=== PATIENT | female | born 1960 | race Caucasian/White ===

== ENCOUNTER 2016-07-27 13:51 | Inpatient (IN) ==
[2016-07-27] MEDS ORDERED: Nitroglycerin 0.4 MG TAB.SUBL SL STA (14:16)
--- NOTE | 2016-07-27 14:17 | Emergency Department Note ---
Disposition Clinical Impression: NSTEMI (non-ST elevated myocardial infarction) Chest pain Qualifiers: Chest pain type: unspecified Qualified Code(s): R07.9 - Chest pain, unspecified Disposition: Admitted As Inpatient Condition: Fair Time of Disposition: 15:31 Chest Pain HPI - General Chief Complaint: ED Chest Pain Stated Complaint: chest pain Time Seen by Provider: 07/27/16 14:02 Source: EMS Mode of arrival: ambulatory Limitations: no limitations Vital Signs Reviewed: Yes Nursing Notes Reviewed: Yes - History of Present Illness HPI Narrative: 55-year-old female with no history other than morbid obesity presents with abrupt onset of retrosternal chest heaviness that radiated slightly to the right and was associated with shortness of breath. This began one hour prior to arrival. She denied diaphoresis, vomiting with the symptoms. She states his symptoms significantly improved after administration of nitroglycerin and aspirin by the EMS in route. She denies history of similar symptoms. She denies any exertional symptoms. She denies any home medications other than Zoloft. She denies family history of CAD. She has no other past medical history. Pt complaint: chest pain Severity scale (1-10): 5 - Related Data Allergies Allergy/AdvReac Type Severity Reaction Status Date / Time acetaminophen [From Vicodin] Allergy Anaphylaxis Verified 07/27/16 13:54 codeine Allergy Anaphylaxis Verified 07/27/16 13:54 hydrocodone [From Vicodin] Allergy Anaphylaxis Verified 07/27/16 13:54 All systems ED: reviewed and negative except as stated. Chest Pain PMH - Past Medical History Medical history: Reports: arthritis, osteoporosis Psychiatric history: Reports: anxiety - Social History Smoking Status: Current every day smoker Alcohol use: Reports: none, rarely Drug use: Reports: marijuana Physical Exam - Head Head exam: atraumatic, normocephalic, normal inspection - Eye Eye exam: Present: normal appearance, PERRL, EOMI - ENT ENT exam: normal exam, normal oropharynx, mucous membranes moist - Neck Neck exam: Present: normal inspection, full ROM, trachea midline - Chest Chest wall nontender. Pain nonreproducible. - Respiratory Respiratory exam: Clear to auscultation bilaterally without wheezes rales or rhonchi Cardiovascular Cardiovascular exam: Present: regular rate, normal rhythm, normal heart sounds - Abdominal Exam Limited by obesity, but soft and nontender. - Extremities Exam Extremities exam: Present: normal inspection, full ROM - Expanded Lower Extremity Exam Hip/Pelvis exam: Present: normal inspection, full ROM - Back Exam Back exam: Present: normal inspection, full ROM. Absent: tenderness, CVA tenderness (R), CVA tenderness (L) - Neurological Exam Neurological exam: Present: alert, oriented X3, CN II-XII intact - Psychiatric Psychiatric exam: Present: normal affect, normal mood - Skin Skin exam: Present: warm, dry, intact, normal color - General General appearance: alert Course - Reevaluation(s) Reevaluation #1: No clear ischemia on initial EKG, but patient does have inferior Q waves which are new compared with 01/22/2014. Patients pain is remitted after nitroglycerin in the emergency department. Given abnormal EKG and remitted chest pain after nitroglycerin we will bring the patient in for chest pain observation. Time: 15:31 Reevaluation #2: Notified of abnormal troponin of 0.16. Patient will now be admitted for NSTEMI. Time: 15:34 Reevaluation #3: Case discussed with hospitalist on-call Dr. Hinton. Accepted for non-ST elevation myocardial infarction. Time: 15:46 Vital Signs O2 Sat by Pulse Oximetry 98 07/27/16 13:52 Temperature 98.3 F 07/27/16 17:49 Pulse Rate 73 07/27/16 17:49 Respiratory Rate 16 07/27/16 17:49 Blood Pressure 156/90 07/27/16 17:49 O2 Sat by Pulse Oximetry 97 07/27/16 17:49 Oxygen Delivery Oxygen Delivery Room Air Chest Pain - Lab Data Result diagrams: 07/27/16 16:53 07/27/16 15:02 Lab Results 07/27/16 07/27/16 07/27/16 Range/Units 15:02 15:02 15:02 WBC 7.5 (4.3-11.1) K/mcL RBC 4.32 (3.82-4.97) M/mcL Hgb 13.4 (11.5-15.4) g/dL Hct 39.7 (35.3-44.9) % MCV 91.9 (83.0-100.0) fL MCH 31.0 (28.0-33.3) pg MCHC 33.8 (31.6-35.5) g/dL RDW 13.0 (11.5-14.5) % Plt Count 248 (140-400) K/mcL MPV 9.4 (9.4-12.4) fL Immature Gran % 0.3 (0-4) % Seg Neutrophils % 66.5 % Lymphocytes % 25.8 % Monocytes % 5.3 % Eosinophils % 1.6 % Basophils % 0.5 % Neutrophils # 5.0 (1.6-8.9) K/mcL Lymphocytes # 1.9 (0.6-4.6) K/mcL Monocytes # 0.4 (0.0-1.3) K/mcL Eosinophils # 0.1 (0.0-0.6) K/mcL Basophils # 0.0 (0.0-0.2) K/mcL Immature Plt Fraction 3.5 (1.1-6.1) % Sodium 142 (136-145) mEq/L Potassium 3.5 (3.5-4.5) mEq/L Chloride 108 (98-109) mEq/L Carbon Dioxide 25 (19-29) mEq/L BUN 12 (7-20) mg/dL Creatinine 0.75 (0.57-1.11) mg/dL Est GFR ( Amer) > 60 (> 60) Est GFR (Non-Af Amer) > 60 (> 60) BUN/Creatinine Ratio 16 (6-26) Glucose 86 (70-99) mg/dL Calculated Osmolality 293 (280-300) Calcium 9.1 (8.6-10.8) mg/dL Troponin I 0.16 H* (0-0.03) ng/mL - Radiology Data Radiology results reviewed: Yes I reviewed the patient's radiology results. - EKG Data EKG attestation: Yes I reviewed and interpreted this EKG. EKG results narrative: Normal sinus rhythm at 72 with normal axis and intervals. No ST elevation or depression. There are nonspecific T-wave inversions in the septal leads. There are Q waves in inferior leads. These are new compared with 01/22/2014. Attestation Statement - Attestation Attestation: Dr Alejandre note: Patient was seen in conjunction with resident Dr. Omkar Mitchell; please see his chart for complete documentation. I spent [id number] time with the patient and I agree with the patient's treatment and disposition. Patient is pain-free at the time of my evaluation. No acute injury pattern is noted on EKG. She was seen in the emergency room by the gericare aide who recommended medications and admission. Admitted in stabilized and improved condition. Patient had indigestion type symptoms late morning which are new and unique to her. She then had retrosternal chest pain at rest, early afternoon.
[2016-07-27 15:10] LABS: Basophils % 0.5 %; Eosinophils # 0.1 K/mcL (0.0-0.6); Eosinophils % 1.6 %; Hematocrit 39.7 % (35.3-44.9); Hemoglobin 13.4 g/dL (11.5-15.4); Immature Granulocytes % 0.3 % (0-4); Immature Platelets 3.5 % (1.1-6.1); Lymphocytes # 1.9 K/mcL (0.6-4.6); Lymphocytes % 25.8 %; Mean Corpuscular HGB Conc 33.8 g/dL (31.6-35.5); Mean Corpuscular Volume 91.9 fL (83.0-100.0); Mean Platelet Volume 9.4 fL (9.4-12.4); Monocytes # 0.4 K/mcL (0.0-1.3); Monocytes % 5.3 %; Platelet Count 248 K/mcL (140-400); Red Blood Count 4.32 M/mcL (3.82-4.97); Segmented Neutrophils % 66.5 %
[2016-07-27 15:22] LABS: BUN/Creatinine Ratio 16 (6-26); Blood Urea Nitrogen 12 mg/dL (7-20); Calcium 9.1 mg/dL (8.6-10.8); Carbon Dioxide 25 mEq/L (19-29); Chloride 108 mEq/L (98-109); Glucose 86 mg/dL (70-99); Osmolality,Calculated 293 (280-300); Potassium 3.5 mEq/L (3.5-4.5); Sodium 142 mEq/L (136-145); eGFR For African Americans > 60 (> 60); eGFR For Non-African Americans > 60 (> 60)
[2016-07-27] MEDS ORDERED: Acetaminophen 325 MG TABLET PO PRN (16:01)
[2016-07-27] MEDS ORDERED: Ondansetron 4 MG/2 ML VIAL IVP PRN (16:01)
[2016-07-27] MEDS ORDERED: Naloxone 0.4 MG/ML INJ IVP PRN (16:01)
[2016-07-27] MEDS ORDERED: *HR* Heparin 5,000 UNIT/ML VIAL IVP ONE (16:05)
[2016-07-27] MEDS ORDERED: *HR* Heparin 5,000 UNIT/ML VIAL IVP PRN ×2 (16:05)
--- NOTE | 2016-07-27 16:09 | Internal Med History&Physical ---
Date of Encounter: 07/27/16 Time of Encounter: 16:07 Assessment and Plan (1) NSTEMI (non-ST elevated myocardial infarction) Current visit: Yes Status: Acute Start heparin drip Aspirin, Lipitor, Lopressor, nitroglycerin Telemetry, follow troponins, lipid panel Cardiology consult to consider cardiac catheterization Nothing by mouth after midnight Echocardiogram (2) Depression Current visit: Yes Status: Acute Stable Order Ativan as needed for anxiety Qualifiers: Depression Type: major depressive disorder Major depression recurrence: recurrent Active/Remission status: remission status unspecified Qualified Code(s): F33.9 - Major depressive disorder, recurrent, unspecified (3) Anxiety Current visit: Yes Status: Acute (4) Morbid obesity Current visit: Yes Status: Acute Qualifiers: Obesity type: unspecified obesity type Qualified Code(s): E66.01 - Morbid ( severe) obesity due to excess calories (5) Tobacco abuse Current visit: Yes Status: Acute Smoking cessation counseling given for 5 minutes Nicotine patch offered Omeprazole for GI prophylaxis and heparin drip for DVT prophylaxis. Patient will be admitted as inpatient, she is expected to stay more than 2 midnights. She is a full code. Time spent on this admission 40 minutes. She is high risk for cardiac complications Internal Medicine - H&P: HPI Chief complaint: chest pain Admitted From: Emergency Dept History of present illness: Ms. Hicks is a 55 year old female with a past medical history of obesity and tobacco use who started complaining of some stomach discomfort earlier today at 11 AM for which she took some antiacids without achieving any relief. At approximately 1 PM she started complaining of severe retrosternal/midsternal chest pressure radiating to the right side initially and then to the left Jaw that lasted for about half an hour, 10 out of 10 in intensity which improved considerably with the use of nitroglycerin given by the EMS. Another nitroglycerin resolve the pain completely. The patient's troponin is 0.16, the EKG shows new Q waves in the inferior leads. The patient is pain-free at the moment very anxious. Feels slightly nauseous but denies any other symptoms. Chest x-ray is unremarkable Past Med Surg Social Fam HX - Past Medical History Medical history: arthritis, osteoporosis, other (Tobacco use, osteoporosis, osteoarthritis, depression) Psychiatric history: anxiety - Past Surgical History Surgical History: other (Right knee arthroscopy) - Social History Smoking Status: Current every day smoker Packs per day: One pack per day Smokeless Tobacco Status: No Alcohol use: none, rarely Drug use: marijuana - Additional Family History Additional family history: Mother had the first myocardial infarction at the age of 50 Internal Medicine - H&P: Meds Calcium Polycarbophil [Fiber Laxative] 625 mg PO HS 07/27/16 [History] Cyclobenzaprine [Flexeril] 10 mg PO TID 07/27/16 [History] LORazepam [Ativan] 0.5 mg PO QAM 07/27/16 [History] LORazepam [Ativan] 1 mg PO HS 07/27/16 [History] Melatonin 10 mg PO HS 07/27/16 [History] Mirtazapine [Remeron] 30 mg PO HS 07/27/16 [History] Omeprazole [PriLOSEC] 40 mg PO HS 07/27/16 [History] OxyCODONE Immed Rel [Roxicodone 5 MG] 5 mg PO Q4HR PRN 07/27/16 [History] Sertraline [Zoloft] 75 mg PO HS 07/27/16 [History] Allergies acetaminophen [From Vicodin] Allergy (Verified 07/27/16 13:54) Anaphylaxis codeine Allergy (Verified 07/27/16 13:54) Anaphylaxis hydrocodone [From Vicodin] Allergy (Verified 07/27/16 13:54) Anaphylaxis All Systems PM: A 10-system review of systems was performed and is negative for pertinent findings except as documented above in the HPI. Review of systems: No chest moment, no shortness of breath but she had some difficulty breathing while having/experiencing the chest pressure. No abdominal pain, no dysuria. Other systems out of the 10 reviewed were negative - Constitutional Vitals: Temp Pulse Resp BP Pulse Ox 98.2 F 76 18 135/90 99 07/27/16 13:54 07/27/16 13:54 07/27/16 13:54 07/27/16 13:54 07/27/16 13:54 General appearance: Present: A&O X 3, morbidly obese - Head Head exam: Present: atraumatic, normocephalic - Eye Eye exam: Present: PERRL, conjuntiva pink, sclera anicteric Pupils: Present: PERRL - Neck Neck exam general surgery: Present: supple, trachea midline. Absent: lymphadenopathy - Respiratory Respiratory exam: Present: decreased breath sounds, CTAB. Absent: accessory muscle use, rales, rhonchi, wheezes - Cardiovascular Cardiovascular exam: Present: RRR, +S1, +S2. Absent: diastolic murmur, gallop, rubs, systolic murmur - GI/Abdominal GI/Abdominal exam: Present: diminished bowel sounds, soft, no peritoneal signs. Absent: distended, tenderness - Extremities Exam Extremities exam: Present: warm, radial pulses palpable and symetrical. Absent : calf tenderness, cyanotic, pedal edema - Neurological Exam Neurological exam: Present: CN II-XII intact, oriented X3, no focal deficits. Absent: pronater drift, facial droop, speech deficit - Skin Skin exam: Present: dry, intact Internal Med - H&P Results - Labs CBC & Chem 7: 07/27/16 15:02 07/27/16 15:02 Labs: Short CBC 07/27/16 Range/Units 15:02 WBC 7.5 (4.3-11.1) K/mcL Hgb 13.4 (11.5-15.4) g/dL Hct 39.7 (35.3-44.9) % Plt Count 248 (140-400) K/mcL Neutrophils # 5.0 (1.6-8.9) K/mcL BMP 07/27/16 15:02 Sodium 142 Potassium 3.5 Chloride 108 Carbon Dioxide 25 BUN 12 Creatinine 0.75 Glucose 86 Calcium 9.1 Cardiac Enzymes 07/27/16 Range/Units 15:02 Troponin I 0.16 H* (0-0.03) ng/mL - Impressions ITS Impressions Chest X-Ray 07/27/16 14:11 IMPRESSION: No acute abnormality D/ / Giorgio Pat MD / Giorgio Pat MD Interpreting Provider: Giorgio Pat MD
[2016-07-27] MEDS ORDERED: Heparin 25,000 UNIT/500 ML D5W 25,000 UNIT/500 ML MLS IVC SCH (16:15)
[2016-07-27] MEDS ORDERED: 0.9 % Sodium Chloride 1,000 ML IVC SCH (16:15)
--- NOTE | 2016-07-27 16:19 | Cardiology Consult Note ---
Date of Encounter: 07/27/16 Time of Encounter: 16:18 Assessment and Plan (1) Chest pain Current Visit: Yes Status: Acute Qualifiers: Chest pain type: unspecified Qualified Code(s): R07.9 - Chest pain, unspecified (2) NSTEMI (non-ST elevated myocardial infarction) Current Visit: Yes Status: Acute Patient is a 55-year-old female with a history of tobacco use. Presents with chest discomfort, radiation to her neck and jaw. Symptoms improved with nitroglycerin. Initial troponin mildly elevated. Findings are consistent with possible ACS. Agree with aspirin, statin, and beta tiburcio therapy. Agree with heparin drip. Since patient currently chest pain-free, will hold off Plavix for now. Check echocardiogram. Risks, benefits, and alternatives to a cardiac catheterization were discussed. Patient is agreeable. (3) Tobacco abuse Current Visit: Yes Status: Acute Tobacco cessation strongly emphasized. Discussion w patient/family: The assessment and plan as outlined above was discussed with the patient and/or family members who expressed understanding and agreement. All questions were answered. Thank you for involving us in the care of your patient. Please call with any questions. History of Present Illness Consult date: 07/27/16 Requesting physician: Miles Ferguson Consult reason: CP, elevated troponin Chief complaint: CP History of present illness: Ms. Hicks is a 55 year old female who presented to the ER via EMS. Reports sudden onset of chest pain this morning. She was walking across the room to make her bed when she noticed a sudden onset of chest pressure. She thought was indigestion and took some antacids. Symptoms radiated to her neck and jaw. Symptoms lasted for at least 20-30 minutes. Symptoms improved with nitroglycerin. She denies a personal history of CAD. Reports remote stress testing. She has never required a cardiac catheterization. In the ER, ECG performed which demonstrates sinus rhythm. No significant ST or T -wave changes. Troponin 0.16. Past Med Surg Social Fam HX - Past Medical History Medical history: arthritis, osteoporosis, other (Tobacco use, osteoporosis, osteoarthritis, depression) Psychiatric history: anxiety - Past Surgical History Surgical History: other (Right knee arthroscopy) - Social History Smoking Status: Current every day smoker Packs per day: One pack per day Smokeless Tobacco Status: No Alcohol use: none, rarely Drug use: marijuana Medications and Allergies Calcium Polycarbophil [Fiber Laxative] 625 mg PO HS 07/27/16 [History] Cyclobenzaprine [Flexeril] 10 mg PO TID 07/27/16 [History] LORazepam [Ativan] 0.5 mg PO QAM 07/27/16 [History] LORazepam [Ativan] 1 mg PO HS 07/27/16 [History] Melatonin 10 mg PO HS 07/27/16 [History] Mirtazapine [Remeron] 30 mg PO HS 07/27/16 [History] Omeprazole [PriLOSEC] 40 mg PO HS 07/27/16 [History] OxyCODONE Immed Rel [Roxicodone 5 MG] 5 mg PO Q4HR PRN 07/27/16 [History] Sertraline [Zoloft] 75 mg PO HS 07/27/16 [History] Allergies acetaminophen [From Vicodin] Allergy (Verified 07/27/16 13:54) Anaphylaxis codeine Allergy (Verified 07/27/16 13:54) Anaphylaxis hydrocodone [From Vicodin] Allergy (Verified 07/27/16 13:54) Anaphylaxis All Systems Review: A 10-system review of systems was performed and is negative for pertinent findings except as documented above in the HPI. - Cardiovascular Cardiovascular: as per HPI Physical Examination Vital Signs, Last 4 Hours Temp Pulse Resp BP Pulse Ox 07/27/16 13:54 98.2 F 76 18 135/90 99 07/27/16 13:52 98 General: Conversant, No Apparent Distress HEENT: Atraumatic, Normocephaly, Mucus Membranes Moist Neck: No JVD, Normal carotid pulses Cardiac: Reg Rate and Rhythm, Normal S1 and S2, No Murmur Lungs: Normal Breath Sounds, No Wheeze, Rales, Rhonchi Neuro: Alert and responsive, No focal deficits noted Abdomen: Soft, Non-Tender Skin: No rashes noted on visualized skin Musculoskeletal: No Chest Wall Tenderness Extremities: No Clubbing, No Cyanosis, No Edema Results 07/27/16 15:02 07/27/16 15:02 Lab Results 07/27/16 07/27/16 07/27/16 15:02 15:02 15:02 WBC 7.5 Hgb 13.4 Hct 39.7 Plt Count 248 Sodium 142 Potassium 3.5 Chloride 108 Carbon Dioxide 25 BUN 12 Creatinine 0.75 Glucose 86 Calcium 9.1 Troponin I 0.16 H* - EKG Interpretation EKG results cardiology: personally reviewed Consult Discharge Plan - Plan Referrals: NO,PCP [Non-Partnered Physician] -
[2016-07-27] MEDS ORDERED: Nitroglycerin 0.4 MG TAB.SUBL SL PRN (16:38)
[2016-07-27] MEDS ORDERED: *HR* LORazepam 1 MG TABLET PO ONE (16:43)
[2016-07-27 17:04] LABS: Hematocrit 38.6 % (35.3-44.9); Hemoglobin 13.1 g/dL (11.5-15.4); Mean Corpuscular HGB Conc 33.9 g/dL (31.6-35.5); Mean Corpuscular Hemoglobin 31.5 pg (28.0-33.3); Mean Corpuscular Volume 92.8 fL (83.0-100.0); Mean Platelet Volume 9.6 fL (9.4-12.4); Platelet Count 238 K/mcL (140-400); Red Blood Count 4.16 M/mcL (3.82-4.97); Red Cell Distribution Width 13.1 % (11.5-14.5)
[2016-07-27 17:09] LABS: Prothrombin Time 10.7 Seconds (9.4-12.1)
[2016-07-27] MEDS: Metoprolol 100 MG TABLET PO SCH ×2 (18:19→22:40)
[2016-07-27] MEDS: Aspirin 325 MG TABLET PO SCH (18:21)
[2016-07-27] MEDS: *HR* OxyCODONE/APAP 5/325 TABLET PO PRN (18:21)
[2016-07-27] MEDS: *HR* LORazepam 1 MG TABLET PO SCH (22:36)
[2016-07-27] MEDS: Mirtazapine 15 MG TABLET PO SCH (22:36)
[2016-07-27] MEDS: Melatonin 3 MG TABLET PO SCH (22:39)
[2016-07-27] MEDS: Nicotine 21 MG PATCH.TD24 TD SCH (22:41)
[2016-07-27] MEDS: Ketorolac 30 MG/ML VIAL IVP PRN (22:46)
[2016-07-28 05:21] LABS: BUN/Creatinine Ratio 21 (6-26); Blood Urea Nitrogen 16 mg/dL (7-20); Calcium 8.7 mg/dL (8.6-10.8); Carbon Dioxide 19 mEq/L (19-29); Chloride 112 mEq/L (98-109); Chol/HDL Ratio 5.6 (0-4.9); Cholesterol 197 mg/dL (< 200); Glucose 98 mg/dL (70-99); HDL Cholesterol 35 mg/dL (40-59); LDL Cholesterol,Calculated 120 mg/dL (0-99); Osmolality,Calculated 289 (280-300); Potassium 3.7 mEq/L (3.5-4.5); Sodium 139 mEq/L (136-145); Triglycerides 210 mg/dL (< 150); eGFR For African Americans > 60 (> 60); eGFR For Non-African Americans > 60 (> 60)
[2016-07-28] MEDS: *HR* OxyCODONE/APAP 5/325 TABLET PO PRN ×3 (06:34→21:17)
--- NOTE | 2016-07-28 07:46 | ECHO - Doppler Report ---
Echocardiogram Name: Marci Hicks Date of Study: 07/27/2016 Date: 1960 Ht: 66.0 in Medical Record#: [id number] Age: 55 Wt: 259.0 lb Gender: Female BSA: 2.23 Order #: [id number] Location: [facility] Room #: [id number] Reading Physician: Laurent Fernández MD, [facility] Coding Clerk: Candida Sanchez RDCS Ordering Physician: Milton Dobson DO,[facility] Primary Physician: Duran Scott MD Indications: NSTEMI Impressions: LVEF 55-60%. There is hypokinesis of the basal inferior wall. All other segments demonstrate normal contractility. Mild concentric left ventricular hypertrophy. Normal right ventricular size and function. No significant valvular dysfunction. No evidence of pulmonary hypertension. Left Ventricular Wall Motion: Rest Echo Findings The basal inferior wall was hypokinetic. All other wall segments showed normal motion. Findings: Study Quality * Suboptimal echo windows. ECG Findings * Normal sinus rhythm. Left Ventricle * LVEF 55-60%. There is hypokinesis of the basal inferior wall. All other segments demonstrate normal contractility. * Mild concentric left ventricular hypertrophy. * Normal left ventricular diastolic function. Right Ventricle * Normal right ventricular size and function. Left Atrium * Normal left atrial size. Right Atrium * Normal right atrial size. Aorta * Normally sized aortic root. Pericardium * There is no pericardial effusion present. IVC * The IVC is not well evaluated. Aortic Valve * Trileaflet aortic valve. * No aortic stenosis. * No aortic regurgitation. Mitral Valve * Normal mitral valve structure. * No mitral stenosis. * Trace mitral regurgitation. Tricuspid Valve * Normal tricuspid valve structure. * No tricuspid stenosis. * Trace tricuspid regurgitation. * No evidence of pulmonary hypertension. Pulmonic Valve * Normal pulmonic valve structure. * No pulmonic stenosis. * Trace pulmonic regurgitation. History Years 7 Packs 1 Family History of CAD Measurements: BP: 156/ 90 2D Normal Values RVIDd: 3.53 cm IVSd: 1.29 cm 0.6 - 1.0 cm LVIDd: 4.87 cm 3.7 - 5.6 cm LVPWd: 1.19 cm 0.6 - 1.1 cm LVIDs: 2.65 cm 1.5 - 3.6 cm AO: 3.30 cm < 4.0 cm %FS: 45.80 cm >25 % LA volume: 37 Mitral Valve Peak E:.77 m/sec Peak A:.65 m/sec E/A Ratio:1.2 Tricuspid Valve TV Regurg Peak Grad: 13.00mmHg TV Regurg Peak Prasanna: 1.79m/sec Updated by Laurent Fernández MD, [facility] on 07/28/2016 7:38:30 AM electronically signed on 07/28/2016 7:39:31 AM with status of Final Wall Motion [place]: 1=Normal, 2=Hypokinesis, 3=Akinesis, 4=Dyskinesis, 5=Aneurysmal, 6=Hyperkinetic, X=Not Visualized (Blank)=Missing
--- NOTE | 2016-07-28 09:27 | Internal Med Progress Note ---
<Juan Kaur - Last Filed: 07/28/16 15:18> Date of Encounter: 07/28/16 Time of Encounter: 09:22 - Assessment and plan (1) NSTEMI (non-ST elevated myocardial infarction) Current Visit: Yes Status: Acute Assessment and plan: Continue heparin drip Aspirin, Lipitor, Lopressor, nitroglycerin Telemetry, follow troponins, lipid panel Scheduled for CAth today - NPO (2) Anxiety Current Visit: Yes Status: Acute Assessment and plan: Ativan PRN for anxiety (3) Tobacco abuse Current Visit: Yes Status: Acute Assessment and plan: Smoking cessation counseling given. Patient states that she intends to quit smoking immediately (4) Morbid obesity Current Visit: Yes Status: Acute Assessment and plan: Dam Attendant about proper nutrition Qualifiers: Obesity type: unspecified obesity type Qualified Code(s): E66.01 - Morbid ( severe) obesity due to excess calories - Time Spent With Patient 25 - 35 minutes - Subjective Interval history: Mrs. Hicks is a pleasant 55 year old female who was admitted for a NSTEMI. She is scheduled for a cath today. She was anxious about the cath procedure until I explained it to her and she then became much more relaxed. She does smoke, but plans to quit soon. She denies CP/n/v/d/SOB. - Constitutional Vitals: Temp Pulse Resp BP Pulse Ox 97.7 F 65 18 151/86 97 07/28/16 07:54 07/28/16 07:54 07/28/16 07:54 07/28/16 07:54 07/28/16 07:54 General appearance: Present: A&O X 3, morbidly obese, pleasant, answers questions appropriately - Eye Eye exam: Present: conjuntiva pink, sclera anicteric - Neck Neck exam general surgery: Present: supple, trachea midline. Absent: lymphadenopathy - Respiratory Respiratory exam: Present: CTAB. Absent: accessory muscle use, rales, rhonchi, wheezes - Cardiovascular Cardiovascular exam: Present: RRR, +S1, +S2. Absent: diastolic murmur, gallop, rubs, systolic murmur - GI/Abdominal GI/Abdominal exam: Present: normal bowel sounds, soft, no peritoneal signs. Absent: distended, tenderness - Extremities Exam Extremities exam: Present: warm, radial pulses palpable and symetrical. Absent : calf tenderness, cyanotic, pedal edema - Neurological Exam Neurological exam: Present: oriented X3, no focal deficits. Absent: pronater drift, facial droop, speech deficit - Psychiatric Psychiatric exam: Present: normal affect, normal mood - Skin Skin exam: Present: dry, intact Internal Medicine: Result - Labs CBC & Chem 7: 07/27/16 16:53 07/28/16 04:26 Labs: Short CBC 07/27/16 Range/Units 16:53 WBC 8.3 (4.3-11.1) K/mcL Hgb 13.1 (11.5-15.4) g/dL Hct 38.6 (35.3-44.9) % Plt Count 238 (140-400) K/mcL BMP 07/28/16 04:26 Sodium 139 Potassium 3.7 Chloride 112 H Carbon Dioxide 19 BUN 16 Creatinine 0.75 Glucose 98 Calcium 8.7 Cardiac Enzymes 07/27/16 07/28/16 Range/Units 16:53 04:26 Troponin I 1.10 H* 1.53 H* (0-0.03) ng/mL - ABG Interpretation ABG results: PT/INR, D-dimer PT 10.7 Seconds (9.4-12.1) 07/27/16 16:53 - EKG Interpretation EKG Interpreted by Myself: Yes EKG shows normal: sinus rhythm, axis (normal), intervals, QRS complexes (new q waves), ST-T waves - Prior EKG Data When compared to previous EKG: there are significant changes (new q waves ) Consult Discharge Plan - Plan Referrals: Duran Scott Jr, MD [Primary Care Provider] - <Jose David Morrison - Last Filed: 07/28/16 19:40> - Assessment and plan (1) NSTEMI (non-ST elevated myocardial infarction) Current Visit: Yes Status: Acute (2) Tobacco abuse Current Visit: Yes Status: Acute (3) Anxiety Current Visit: Yes Status: Acute (4) Morbid obesity Current Visit: Yes Status: Acute Qualifiers: Obesity type: due to excess calories Qualified Code(s): E66.01 - Morbid ( severe) obesity due to excess calories - Constitutional Vitals: Temp Pulse Resp BP Pulse Ox 96 F L 58 16 146/72 96 07/28/16 16:50 07/28/16 18:07 07/28/16 18:07 07/28/16 18:07 07/28/16 18:07 Internal Medicine: Result - Labs CBC & Chem 7: 07/27/16 16:53 07/28/16 04:26 Labs: BMP 07/28/16 04:26 Sodium 139 Potassium 3.7 Chloride 112 H Carbon Dioxide 19 BUN 16 Creatinine 0.75 Glucose 98 Calcium 8.7 Cardiac Enzymes 07/28/16 Range/Units 04:26 Troponin I 1.53 H* (0-0.03) ng/mL - ABG Interpretation ABG results: PT/INR, D-dimer PT 10.7 Seconds (9.4-12.1) 07/27/16 16:53 - Attending Attestation I examined this patient and my medical decision-making was reviewed with the Resident Physician on 07/28/16. I agree with the documented findings, disposition and treatment plan as described except to the extent set forth below. Ms. Hicks is currently admitted for acute NSTEMI. She is moderate to high risk due to potential complications associated with acute coronary ischemia. Ms. Hicks is awaiting cardiac cath. Pain free now. No dyspnea. No GI symptoms. Exam alert. Comfortable Heart reg Lungs clear I/P 1. Acute NSTEMI 2. Tobacco abuse Further diagnoses and plan as above.
[2016-07-28] MEDS: Aspirin 325 MG TABLET PO SCH (09:28)
[2016-07-28] MEDS: *HR* LORazepam 0.5 MG TABLET PO SCH (09:28)
[2016-07-28] MEDS: Metoprolol 100 MG TABLET PO SCH (09:28)
[2016-07-28] MEDS: Ketorolac 30 MG/ML VIAL IVP PRN (09:31)
--- NOTE | 2016-07-28 11:07 | Event Note ---
Date of Encounter: 07/28/16 Time of Encounter: 10:00 - Cardiology Event Note Denies recurrent chest pain. Awaiting [facility] later this morning for NSTEMI. Troponin as high as 1.53. All questions answered. Chest X-Ray 07/27/16 14:11 IMPRESSION: No acute abnormality D/ / Giorgio Pat MD / Giorgio Pat MD Interpreting Provider: Giorgio Pat MD Short CBC 07/27/16 07/27/16 Range/Units 16:53 15:02 WBC 8.3 7.5 (4.3-11.1) K/mcL Hgb 13.1 13.4 (11.5-15.4) g/dL Hct 38.6 39.7 (35.3-44.9) % Plt Count 238 248 (140-400) K/mcL Neutrophils # 5.0 (1.6-8.9) K/mcL BMP 07/28/16 07/27/16 Range/Units 04:26 15:02 Sodium 139 142 (136-145) mEq/L Potassium 3.7 3.5 (3.5-4.5) mEq/L Chloride 112 H 108 (98-109) mEq/L Carbon Dioxide 19 25 (19-29) mEq/L BUN 16 12 (7-20) mg/dL Creatinine 0.75 0.75 (0.57-1.11) mg/dL Glucose 98 86 (70-99) mg/dL Calcium 8.7 9.1 (8.6-10.8) mg/dL Cardiac Enzymes 07/28/16 07/27/16 07/27/16 Range/Units 04:26 16:53 15:02 Troponin I 1.53 H* 1.10 H* 0.16 H* (0-0.03) ng/mL
--- NOTE | 2016-07-28 11:27 | Electrocardiograph Report ---
[facility] Test Date: 2016-07-27 Pat Name: Marci Hicks Department: 104 Room: 2NE24 Gender: F [employer] Supervisor: [facility] : 1960 Requested By: Beau Mitchell Order Number: [id number] Reading MD: Milind Schwartz MD Measurements Intervals [place] Rate: 72 P: 20 OK: 183 QRS: 16 QRSD: 105 T: 9 QT: 392 QTc: 416 Interpretive Statements SINUS RHYTHM POSSIBLE INFERIOR MYOCARDIAL INFARCTION, PROBABLY OLD POOR R WAVE PROGRESSION Electronically Signed On 07-28-16 11:26:20 EST by Milind Schwartz MD
[2016-07-28] MEDS: Nicotine 21 MG PATCH.TD24 TD SCH (12:24)
[2016-07-28] MEDS ORDERED: Heparin 1,000 UNITS/500 mL NS 500 ML ONE (14:07)
[2016-07-28] MEDS ORDERED: 0.9 % Sodium Chloride 1,000 ML ONE ×2 (14:07→14:38)
[2016-07-28] MEDS ORDERED: *HR* Heparin 10,000 UNIT/10 ML VIAL ONE (14:07)
[2016-07-28] MEDS ORDERED: *HR* Midazolam HCl 2 MG/2 ML VIAL ONE (14:30)
[2016-07-28] MEDS ORDERED: *HR* FentaNYL (PF) 100 MCG/2 ML VIAL ONE (14:30)
[2016-07-28] MEDS ORDERED: Nitroglycerin 1,000 MCG/10 ML VIAL IV ONE (14:31)
[2016-07-28] MEDS ORDERED: Verapamil 5 MG/2 ML VIAL ONE (14:31)
[2016-07-28] MEDS ORDERED: *HR* Midazolam HCl 5 MG/5 ML VIAL IVP ONE (14:36)
--- NOTE | 2016-07-28 14:37 | Pre-Sedation Evaluation ---
Pre-sedation evaluation - Pre-sedation checklist Date of procedure: 07/28/16 Procedure: left heart cath Recent Vitals: Last Vital Signs Temp 97.7 F 07/28/16 07:54 Pulse 66 07/28/16 11:00 Resp 16 07/28/16 11:00 BP 141/80 07/28/16 11:00 Pulse Ox 96 07/28/16 11:00 H&P (including ROS) documented in medical record: Yes Previous reaction to sedatives/anesthetics: No Dietary Status: NPO after Midnight Dentition: No loose teeth or bridges ASA Classification *see protocol: CLASS II-Mild systemic disease Plan of Care: Pt appropriate candidate for procedure/moderate/conscious sedation , Risks/benefits of procedure/sedation discussed w/ patient/family
--- NOTE | 2016-07-28 15:27 | Event Note ---
Date of Encounter: 07/28/16 Time of Encounter: 15:25 C demonstrated minimal CAD. Echocardiogram demonstrated overall normal LVEF. No further inpatient cardiology recommendations. Recommend DAPT (aspirin and Plavix) for one month, then aspirin alone. Continue statin and BB therapy. No further inpatient cardiology recommendations. Followup with me as outpatient. Please call with questions. Thanks, Milton Dobson, DO
[2016-07-28] MEDS: Sennosides 8.6 MG TABLET PO SCH (15:46)
--- NOTE | 2016-07-28 16:45 | Invasive Diagnostic Lab ---
Name: Marci Hicks Date of Study: 07/28/2016 Date: 1960 Ht: 167.9 cm /66.1 in Medical Record#: [id number] Age: 55 Wt: 118.2 kg / 260.59 lb Account/Order#: [id number] Gender: Female BSA: 2.24 Order #: [id number] Fluoro Dose: 201 mGy BMI: 41.93 Procedure Physician: Milind Schwartz MD, FACC Referring MD: Duran Scott MD Referring MD: Procedures Performed: LEFT HEART CATH Indications: Non-Stemi Findings: Mild coronary artery disease Normal EF Plan: Aggressive risk factor modification Optimal medical therapy of patient's disease History/Risk Factors: nstemi Current/Recent Smoker Chronic Lung Disease Procedure Access obtained in the right Radial artery by percutaneous puncture Complications: None, None Contrast: Isovue 60ml Closure Device: Mechanical Compression Hemodynamics: Pressures Site Systolic/ A Wave Diastolic/ V Wave End Diastolic/ Mean HR LV 121 12 22 59 LV 119 14 23 60 AO 118 79 97 60 AO 137 53 95 57 AO 122 88 104 58 LV Ventriculography Ejection Method: LV Gram Ejection Fraction: 55% Wall Motion: HAMMOND Anterobasal Normal Anterolateral Normal Apical: Normal Inferoapical Normal Inferobasal Normal Coronary Dominance: Co-dominant Lesion Findings/Interventions * Left Main Coronary Artery The LMCA is angiographically free of disease. * Left Anterior Descending The LAD is angiographically free of disease. The 1st Diagonal is angiographically free of disease. * Circumflex There is a 20% stenosis in the Proximal Circumflex. The lesion has a LYNN flow of 3. * Right Coronary Artery The RCA is angiographically free of disease. The Right PDA is angiographically free of disease. Updated by RT Jorge (R) on 07/28/2016 3:16:06 PM Milind Schwartz MD, FACC electronically signed on 07/28/2016 4:41:01 PM with status of Final
[2016-07-28] MEDS: Mirtazapine 15 MG TABLET PO SCH (21:20)
[2016-07-28] MEDS: Melatonin 3 MG TABLET PO SCH (21:20)
[2016-07-28] MEDS: *HR* LORazepam 1 MG TABLET PO SCH (21:21)
[2016-07-29] MEDS: *HR* Heparin 5,000 UNIT/ML VIAL SQ SCH ×2 (00:06→08:09)
[2016-07-29 06:07] LABS: BUN/Creatinine Ratio 21 (6-26); Blood Urea Nitrogen 16 mg/dL (7-20); Calcium 8.8 mg/dL (8.6-10.8); Carbon Dioxide 16 mEq/L (19-29); Chloride 113 mEq/L (98-109); Glucose 85 mg/dL (70-99); Osmolality,Calculated 294 (280-300); Sodium 142 mEq/L (136-145); eGFR For African Americans > 60 (> 60); eGFR For Non-African Americans > 60 (> 60)
[2016-07-29 06:08] LABS: Potassium 4.9 mEq/L (3.5-4.5)
[2016-07-29] MEDS: *HR* LORazepam 0.5 MG TABLET PO SCH (08:08)
[2016-07-29] MEDS: Aspirin 325 MG TABLET PO SCH (08:08)
[2016-07-29] MEDS: Nicotine 21 MG PATCH.TD24 TD SCH (08:09)
[2016-07-29] MEDS: Sennosides 8.6 MG TABLET PO SCH (08:09)
[2016-07-29] MEDS: *HR* OxyCODONE/APAP 5/325 TABLET PO PRN (08:12)
--- NOTE | 2016-07-29 08:42 | Discharge Summary ---
<NatashaJuan Laurent - Last Filed: 07/29/16 13:19> Date of Encounter: 07/29/16 Time of Encounter: 08:42 - Discharge Diagnosis (1) NSTEMI (non-ST elevated myocardial infarction) Priority: Primary Status: Acute Comments: -No stent required. -Per cardiology. Aspirin, plavix, statin, bblocker. -Followup with Dr. Dobson (2) Anxiety Priority: Secondary Status: Acute (3) Tobacco abuse Priority: Primary Status: Acute (4) Morbid obesity Priority: Primary Status: Acute Qualifiers: Obesity type: due to excess calories Qualified Code(s): E66.01 - Morbid ( severe) obesity due to excess calories - Discharge Medications Prescriptions: Atorvastatin [Lipitor] 80 mg PO HS #30 tablet Clopidogrel [Plavix] 75 mg PO DAILY #30 tablet LORazepam [Ativan] 1 mg PO HS #30 tablet LORazepam [Ativan] 0.5 mg PO QAM #30 tablet Metoprolol [Lopressor] 12.5 mg PO BID #30 tablet Nicotine Patch [Nicoderm] 21 mg TD DAILY #30 patch.td24 OxyCODONE/APAP 5/325 [Percocet 5/325 MG] 2 each PO Q8H PRN #40 tablet PRN Reason: Severe pain Home Medications: Calcium Polycarbophil [Fiber Laxative] 625 mg PO HS 07/27/16 [History] Cyclobenzaprine [Flexeril] 10 mg PO TID 07/27/16 [History] Melatonin 10 mg PO HS 07/27/16 [History] Mirtazapine [Remeron] 30 mg PO HS 07/27/16 [History] Omeprazole [PriLOSEC] 40 mg PO HS 07/27/16 [History] Sertraline [Zoloft] 75 mg PO HS 07/27/16 [History] Atorvastatin [Lipitor] 80 mg PO HS #30 tablet 07/29/16 [Rx] Clopidogrel [Plavix] 75 mg PO DAILY #30 tablet 07/29/16 [Rx] LORazepam [Ativan] 0.5 mg PO QAM #30 tablet 07/29/16 [Rx] LORazepam [Ativan] 1 mg PO HS #30 tablet 07/29/16 [Rx] Metoprolol [Lopressor] 12.5 mg PO BID #30 tablet 07/29/16 [Rx] Nicotine Patch [Nicoderm] 21 mg TD DAILY #30 patch.td24 07/29/16 [Rx] OxyCODONE/APAP 5/325 [Percocet 5/325 MG] 2 each PO Q8H PRN #40 tablet 07/29/16 [ Rx] Allergies/Adverse Reactions: Allergies codeine Allergy (Verified 07/27/16 13:54) Anaphylaxis hydrocodone [From Vicodin] Allergy (Verified 07/27/16 13:54) Anaphylaxis Date of admission: 07/27/16 16:48 Primary care physician: Duran Scott Jr, MD Consults: 07/27/16 18:49 Consult to Nutrition [CONS] Routine Comment: Consulting Provider: NUTRITION Reason for Dietary Consult: MST Score Consult to Pastoral Services [CONS] Routine Comment: 07/28/16 07:49 Consult to Cardiac Rehabilitation-Phase1 [CONS] Routine Comment: Reason for Consult: NSTEMI Call Completed: No Discharging clinician: Juan Kaur Anticipated date of discharge: 07/29/16 - Patient Status Disposition: Home, Self-Care Condition: Good Functional capacity at discharge: independent ambulation Overall status at discharge: patient is not back to baseline - Discharge Instructions Instructions: Chest Pain (DC), Depression (DC), Anxiety (DC) Follow Up With: Duran Scott Jr, MD [Primary Care Provider] - 08/04/16 9:40 am Milton Dobson DO [Partnered Physician] - 08/03/16 1:00 pm () Additional Instructions: Please return to the ED if you have new or worsening chest pain. Please call Dr. Fontana's office for cardiology followup. If you start to have muscle pains or swelling of the airway, please stop the statin and call your PCP immediately. - Diet and Activity Activity: increase activity as tolerated Diet: advance to your usual diet Interval History: Patient states that she feels well today. Denies any chest pain or shortness of breath. Feels well enough to go home. States that she is going to stop smoking. Understands that she needs to follow-up with Dr. Dobson as an outpatient. Hospital course: Ms. Hicks is a 55 year old female who presented to the emergency department with chest pain. Found to have elevated troponins. We will seen by cardiology , Dr. Dobson, a right radial artery catheterization performed. No extensive occlusions found. No need to statins, patient is placed on aspirin, Plavix, statin, beta tiburcio. Echocardiogram done. Patient feels well enough to go home. Time spent discussing smoking cessation with patient: 3 to 10 minutes - Time Spent with Patient Total time spent providing and/or coordinating discharge services: - Constitutional Vitals: Temp Pulse Resp BP Pulse Ox 97.8 F 59 15 132/77 95 07/29/16 07:21 07/29/16 07:21 07/29/16 07:21 07/29/16 07:21 07/29/16 07:21 General appearance: Present: A&O X 3, morbidly obese, pleasant, answers questions appropriately - Respiratory Respiratory exam: Present: CTAB - Cardiovascular Cardiovascular exam: Present: RRR. Absent: diastolic murmur - GI/Abdominal GI/Abdominal exam: Present: soft, no peritoneal signs - Other Additional findings: no extremity edema. <Jose David Morrison - Last Filed: 07/29/16 19:16> - Discharge Diagnosis (1) NSTEMI (non-ST elevated myocardial infarction) Status: Acute (2) Tobacco abuse Status: Acute (3) Anxiety Status: Acute (4) Morbid obesity Status: Acute Qualifiers: Obesity type: due to excess calories Qualified Code(s): E66.01 - Morbid ( severe) obesity due to excess calories Date of admission: 07/27/16 16:48 Primary care physician: Duran Scott Jr, MD Consults: 07/27/16 18:49 Consult to Nutrition [CONS] Routine Comment: Consulting Provider: NUTRITION Reason for Dietary Consult: MST Score Consult to Pastoral Services [CONS] Routine Comment: 07/28/16 07:49 Consult to Cardiac Rehabilitation-Phase1 [CONS] Routine Comment: Reason for Consult: NSTEMI Call Completed: No Hospital course: Ms. Hicks is a 55 year old female - Time Spent with Patient Total time spent providing and/or coordinating discharge services: 34min - Constitutional Vitals: Temp Pulse Resp BP Pulse Ox 97.8 F 54 15 139/74 99 07/29/16 11:56 07/29/16 11:56 07/29/16 11:56 07/29/16 11:56 07/29/16 11:56 - Attending Attestation I examined this patient and my medical decision-making was reviewed with the Resident Physician on 07/29/16. I agree with the documented findings, disposition and treatment plan as described except to the extent set forth below. Ms. Hicks is doing OK today. No problems with cath. Stable for discharge home. Exam Alert. Comfortable Heart reg Plan D/C today.
[2016-07-29 11:57] VITALS: BP 139/74
--- NOTE | 2016-08-17 10:28 | Invasive Diagnostic Lab Proc ---
Name: Marci Hicks Date of Study: 07/28/2016 Date: 1960 Ht: 66.1in Medical Record#: [id number] Age: 55 Wt: 260.59lb Gender: Female BSA: 2.24 Order #: [id number] BMI: 41.93 Physicians Procedure Physician: Milind Schwartz MD, [facility] Referring MD: Referring MD: Staff Name Position Time In Nora Fatima RT (R) Scrub 02:33 PM Keena Wynnen RT (R) Monitor 02:34 PM Waldo Briggs RN Open Hearth Helper 02:34 PM Sharri Frost RN Nurse 02:35 PM Indications Indication Non-Stemi Procedures Performed Procedure L HRT ARTERY/VENTRICLE ANGIO Pre-Procedure Checklist Informed consent is complete signed and on chart. H\\T\\P is on chart. ID band is on and ID verified with patient. Patient NPO for procedure The procedure was described for the patient and questions were answered. Blood Pressure: 151/86 ECG is on chart. Rhythm: NSR Plan of Care Patient will tolerate the procedure without complications. Adequate level of comfort will be maintained. Hemodynamics will remain stable Patient will recover from procedure without complications. Respiratory function will be maintained. Cardiac rhythm will remain stable. Patient temperature will be maintained. Patient and/or family have verbalized understanding of the procedure. Patient Education Chief Complaint/Reason for Test: Cardiac Cath Developmental Category: Adult (18-64 years) Developmentally Appropriate for Age: Yes Learning Barriers: None Education Needs: Procedure Education Method: Verbal Information Taught: Cardiac Cath Educational Evaluation: Able to repeat information Intravenous Access Time IV Size Location DC'd Fluid/Drip Rate Units RN 02:13 PM 20g 1 07/13" Patent On Arrival Rt Arm 0.9NaCl Allergies hydrocodone codeine Vital Signs Time BP (mmHg) HR (bpm) O2 Sat. RR (bpm) LOC 02:37 PM / % 5 = Fully awake and oriented or at pre-proc level 02:37 PM / % 5 = Fully awake and oriented or at pre-proc level 02:54 PM / % 4 = Oriented but drowsy 02:41 PM 142 / 85 59 99 % 7 02:46 PM 146 / 81 57 93 % 16 02:51 PM 137 / 81 57 97 % 19 02:57 PM 139 / 74 59 98 % 21 03:01 PM 131 / 74 55 87 % 15 03:06 PM 123 / 72 55 91 % 39 Procedural Medications Time Medication Dose Units Method Given By 02:42 PM Oxygen 2 L/min nasal cannula Waldo Briggs RN 02:42 PM Versed 3 mg Intravenous Waldo Briggs RN 02:43 PM Fentanyl 50 mcg Intravenous Waldo Briggs RN 02:56 PM Lidocaine 2% 1 ml Subcutaneous Milind Schwartz MD, FACC 02:57 PM Versed 1 mg Intravenous Waldo Briggs RN 02:57 PM Fentanyl 25 mcg Intravenous Waldo Briggs RN ASA Classification: CLASS II- Mild systemic disease (i.e. well-controlled diabetes, hypertension, asthma, cigarette smoking) Alejandro Score Preprocedure Postprocedure Activity 2- Moves 4 extremities sustained head lift Activity 2- Moves 4 extremities sustained head lift Circulation 2- SBP +/= 20 points of pre-anesthetic level Circulation 2- SBP +/= 20 points of pre-anesthetic level Consciousness 2- Awake and alert oriented x 3 Consciousness 2- Awake and alert oriented x 3 O2 Saturation 2- Able to maintain O2 satruation of 92% on room air O2 Saturation 2- Able to maintain O2 satruation of 92% on room air Respiratory 2- Able to deep breathe and cough well Respiratory 2- Able to deep breathe and cough well Total Score 10 Total Score 10 Contrast Agent: Isovue Diagnostic Contrast: 60 ml Total Contrast: 60 ml Fluoro Dose: 201 mGy Procedure Log Time Note Enter By 02:33 PM Pt arrived to laboratory secretary 2 at 14:33 02:34 PM Nora Fatima RT (R) Position: Scrub Time in: 14:33 02:34 PM Lianna Wynne RT (R) Position: Monitor Time in: 14:34 02:35 PM Waldo Briggs RN Position: Open Hearth Helper Time in: 14:34 02:35 PM hSarri Frost RN Position: Nurse Time in: 14:35 02:35 PM Patient charges- Angio tray pack, Navilyst 3mm J, Pulse Oximetry and ACIST tubing and transducer 02:35 PM IV Supplies used: J loop Angio Cath. 02:35 PM Physician arrived 14:35 02:35 PM Mike and greet completed 02:35 PM Sign in performed according to hospital policy. ell 02:37 PM Time: 14:37 Patient comfortable and pain free: Yes dspell 02:37 PM Time: 14:37LOC: 5 = Fully awake and oriented or at pre-proc level dspell 02:37 PM Clinical Presentation: Non-STEMI dspell 02:37 PM Procedure start 14:37 dspell 02:38 PM CathStat 02:38 PM Case Start 02:41 PM Vitals capture started with the following parameters, Patient=Adult, Interval=5 min, Initial Vcpnbohm=845 mmHg, Deflation Rate=5 mmHg, Cuff placed on Right Arm 02:41 PM HR=59 bpm, WDCA=100/85 mmhg, SpO2=99.0 %, Resp=7 B/min, Comment=NSR 02:42 PM Time: 14:42 Oxygen on at 2 L/min per nasal cannula by Waldo Briggs RN 02:43 PM Time: 14:42 Versed 3 mg Intravenous Given by Waldo Briggs RN 02:43 PM Time: 14:43 Fentanyl 50 mcg Intravenous Given by Waldo Briggs RN 02:46 PM HR=57 bpm, PRPI=837/81 mmhg, SpO2=93.0 %, Resp=16 B/min, Comment=NSR 02:50 PM Hair removed from procedure site in holding area using clippers. Bilateral groin prepped with Chloraprep by Sharri Frost RN then patient draped. Skin intact. ell 02:51 PM HR=57 bpm, GLOJ=831/81 mmhg, SpO2=97.0 %, Resp=19 B/min, Comment=NSR 02:54 PM Time: 14:37LOC: 5 = Fully awake and oriented or at pre-proc level dspell 02:54 PM Time: 14:37 Patient comfortable and pain free: Yes dspell 02:55 PM Time out performed according to hospital policy dspell 02:56 PM Time: 14:56 1 ml Lidocaine 2% to right radial Subcutaneous Given by Milind Schwartz MD, [facility] dspell 02:56 PM Access obtained by percutaneous puncture. 5Fr 10cm Terumo Glidesheath sheath placed in right Radial artery. [id number] dspell 02:57 PM HR=59 bpm, VBDN=189/74 mmhg, SpO2=98.0 %, Resp=21 B/min, Comment=NSR 02:57 PM Time: 14:57 Versed 1 mg Intravenous Given by Waldo Briggs RN [facility] 02:57 PM Time: 14:57 Fentanyl 25 mcg Intravenous Given by Waldo Briggs RN [facility] 02:57 PM 5Fr TIG catheter inserted over the wire [facility] dspell:57 PM 0.035 260cm Navilyst 3mmJ wire [id number] 02:58 PM Catheter selectively placed in left ventricle dspell:58 PM Pressure channel 1 zeroed. 02:58 PM Recorded Pressure: LV, HR=59, Condition=Condition 1 (Left Ventricle) LV 121/12/22 02:59 PM Bolus angiogram of left Ventricle complete: 8 ml/sec for a total of 24 mls dspell 02:59 PM Recorded Pressure: LV, Ao, HR=60, Condition=Condition 1 (Left Ventricle) LV 119/14/23, (Aorta) Ao 118/79/97 02:59 PM Recorded Pressure: Ao, HR=57, Condition=Condition 1 (Aorta) Ao 137/53/95 03:00 PM LCA angiography performed in multiple views. dspell 03:00 PM Recorded Pressure: Ao, HR=58, Condition=Condition 1 (Aorta) Ao 122/88/104 03:01 PM HR=55 bpm, MHZD=949/74 mmhg, SpO2=87.0 %, Resp=15 B/min, Comment=NSR 03:01 PM Lesion found in Proximal Circumflex. Pre Stenosis: 20 Pre LYNN Flow: 3: Complete and Brisk Flow/Perfusion dspell 03:01 PM RCA angiography performed in multiple views. dspell 03:02 PM Coronary Dominance: Co-dominant dspell 03:04 PM Catheter removed dspell 03:04 PM Circumflex, Obtuse Marginal, Left Posterior Descending, and Left Posterolateral Coronary Arteries with 20 % stenosis. If graft is supplying this area, % stenosis dspell 03:04 PM Procedure completed at 15:04 dspellman 03:05 PM Sign out completed: Radiation Dose 200.88 mGy Fluoro Time: 1.6 Isovue 370 - 200ml contrast 60 ml given by Milind Schwartz MD, [facility]. Complications: NoneCardiac Rehab Consult needed: YesConfirmed administered medications: Yes dspell 03:05 PM Isovue 370 - 200ml,1 Bottle(s) used. dspell 03:05 PM Arterial sheath pulled, Vasc Band closure device used and was Successful S/N. dspell 03:05 PM 13 ml air in Vasc Band. dspell 03:06 PM Post ECG NSR dspell 03:06 PM Post Blood Pressure 131/74 dspell 03:06 PM 15:06 Post Pulses Rt Radial 2+ dspell 03:06 PM Information taught Cardiac Cath and Vasc Band dspell 03:06 PM Education needs Procedure, Plan of Care, and Responsibilities of Patient in Care dspell 03:06 PM HR=55 bpm, KCML=754/72 mmhg, SpO2=91.0 %, Resp=39 B/min, Comment=NSR 03:06 PM Learning barriers :None dspell 03:06 PM Education Methods Verbal dspell 03:06 PM Education evaluation Able to repeat information dspell 03:07 PM Site status No bleeding/hematoma - Rt Wrist as reported by Nora Fatima RT (R) at 15:06 dspell 03:09 PM Time: 14:54 Patient comfortable and pain free: Yes dspell 03:09 PM Time: 14:54LOC: 4 = Oriented but drowsy dspell 03:10 PM Report given to Candida GOINS Pt taken to E Room #24. 15:09 dspell 03:10 PM Patient out of room: 15:10 dspell 03:10 PM Family placed none available. dspell 03:11 PM Complications: None dspell 03:11 PM Fluoro Time: 1.6 dspell 03:12 PM Isovue 370 - 200ml contrast 60 ml given by Milind Schwartz MD, [facility]. dspell 03:12 PM [facility]iation D[facility] 200.88 [facility] Complications Complication None None Hemodynamics Pressures Site Systolic/A Wave Diastolic/V Wave Mean LV 121 12 22 LV 119 14 23 AO 118 79 97 AO 137 53 95 AO 122 88 104 Post Procedure Information Blood Pressure: 131/74 mmHg Rhythm: NSR Post procedural instructions were given Closure Device Time Device Success/Fail 07/28/2016 3:14:00 PM Mechanical Compression Successful Site Checks Time Location Status Staff Sheath In? Note 03:06 PM Rt Wrist No bleeding/hematoma Nora Fatima RT (R) Pulses Time Site Pre-Procedure Post-Procedure Note 07/28/2016 2:14:00 PM Bilateral DP \\T\\ PT 2+ Bilateral radial 2+ 3:06:00 PM Rt Radial 2+ Updated by RT Jorge (R) on 07/28/2016 3:16:35 PM Lianna Wynne RT electronically signed on 08/17/2016 10:22:25 AM with status of Final
== END 2016-07-29 14:08 | disposition home or self-care (01) | DRG 190 ==
LOC: EMEROO 13:51 → 2NENU 16:48
PROVIDERS: ADMIT Internal Medicine; ATTEND Internal Medicine

== ENCOUNTER 2018-09-07 15:53 | Observation (INO) ==
--- NOTE | 2018-09-07 16:13 | Emergency Department Note ---
Disposition Clinical Impression: Chest pain Qualifiers: Chest pain type: unspecified Qualified Code(s): R07.9 - Chest pain, unspecified Disposition: Admitted As Inpatient Condition: Fair Chest Pain HPI - General Chief Complaint: ED Chest Pain Stated Complaint: Chest Pain Time Seen by Provider: 09/07/18 15:56 Source: patient, EMS Mode of arrival: EMS Limitations: no limitations Vital Signs Reviewed: Yes Nursing Notes Reviewed: Yes - History of Present Illness HPI Narrative: Patient presents to the ED with the chief complaint of chest pain. Patient reports that she has had 2 previous heart attacks diagnosed by elevated troponins in her blood with the last one about one year ago. She is supposed to be taking aspirin daily but has not been taking it over the last several months. States that she is been under a lot more stress than usual lately. She also drank a red border today and yesterday that has made her feel like she is been having chest palpitations. She states, however, today about an hour prior to arrival. She had the abrupt onset of left-sided chest pressure and heaviness. States she felt like someone was sitting on her chest. Radiated up into her neck and into her left side. Lasted about 10 minutes. She took a nitroglycerin at home which did seem to help. EMS gave her 4 baby aspirin, which did relieve her pain. She is pain-free at this time. She denied any nausea, vomiting or diaphoresis. She does feel lightheaded and dizzy with it. No abdominal pain. No history of DVT or PE. She has had no stents or bypasses. She is not anticoagulated. Severity scale (1-10): 0 - Related Data Home Medications Medication Instructions Recorded Confirmed RX: Calcium Polycarbophil [Fiber 625 mg PO HS 07/27/16 07/27/16 Laxative] RX: Cyclobenzaprine [Flexeril] 10 mg PO TID 07/27/16 07/27/16 RX: Melatonin 10 mg PO HS 07/27/16 07/27/16 RX: Mirtazapine [Remeron] 30 mg PO HS 07/27/16 07/27/16 RX: Omeprazole [PriLOSEC] 40 mg PO HS 07/27/16 07/27/16 RX: Sertraline [Zoloft] 75 mg PO HS 07/27/16 07/27/16 Previous Rx's Medication Instructions Recorded RX: Atorvastatin [Lipitor] 80 mg PO HS #30 tablet 07/29/16 RX: Clopidogrel [Plavix] 75 mg PO DAILY #30 tablet 07/29/16 RX: LORazepam [Ativan] 0.5 mg PO QAM #30 tablet 07/29/16 RX: LORazepam [Ativan] 1 mg PO HS #30 tablet 07/29/16 RX: Metoprolol [Lopressor] 12.5 mg PO BID #30 tablet 07/29/16 RX: Nicotine Patch [Nicoderm] 21 mg TD DAILY #30 patch.td24 07/29/16 RX: OxyCODONE/APAP 5/325 [Percocet 2 each PO Q8H PRN #40 tablet 07/29/16 5/325 MG] RX: PredniSONE [Deltasone] 20 mg PO BID #10 tablet 03/15/17 diazePAM [Valium] 5 mg PO BID PRN #10 tablet 03/15/17 Allergies Allergy/AdvReac Type Severity Reaction Status Date / Time codeine Allergy Anaphylaxis Verified 09/13/16 08:42 hydrocodone [From Vicodin] Allergy Anaphylaxis Verified 09/13/16 08:42 Review of Systems: As reviewed in the HPI. All other systems reviewed are negative or normal. Chest Pain PMH - Past Medical History Medical history: Reports: arthritis, myocardial infarction, osteoporosis Surgical history: Reports: other Psychiatric history: Reports: anxiety [employer] history: Reports: bilateral tubal ligation - Social History Smoking Status: Current every day smoker Alcohol use: Reports: none Drug use: Reports: marijuana Physical Exam CONSTITUTIONAL: [well appearing, alert and in no acute distress] EYES: [EOMI, clear conjunctiva, PERRLA] HENT: [Normocephalic, atraumatic, moist mucus membranes, normal oropharynx] NECK: [normal inspection, full ROM, trachea midline, no obvious swelling] PULMONARY: [normal lung sounds bilaterally, normal chest rise and fall, no respiratory distress or stridor, no wheezes, no rales, no rhonchi CARDIOVASCULAR: [regular rate, regular rhythm, normal heart sounds, no murmurs, distal extremities are warm and well perfused] GASTROINSTESTINAL: [soft, non-tender, non-rigid, non-distended, no guarding, no rebound, normal bowel sounds] GENITOURINARY/RECTAL: [deferred] NEUROLOGIC: [Alert, oriented x3, normal speech, moves all extremities] EXTREMITIES: [Normal inspection, full ROM, no tenderness, no pedal edema, normal capillary refill] MUSCULOSKELETAL: [no gross deformities, atraumatic] SKIN: [No cyanosis, no diaphoresis, normal color, warm, no rash] PSYCHIATRIC: [normal mood and affect] - General Limitations: no limitations General appearance: alert, in no apparent distress Course Vital Signs Temperature 98.3 F 09/07/18 15:57 Pulse Rate 69 09/07/18 15:57 Respiratory Rate 16 09/07/18 15:57 Blood Pressure 111/73 09/07/18 15:57 O2 Sat by Pulse Oximetry 94 09/07/18 15:57 Temperature 98.3 F 09/07/18 15:57 Pulse Rate 70 09/07/18 18:11 Respiratory Rate 16 09/07/18 18:11 Blood Pressure 127/60 09/07/18 18:11 O2 Sat by Pulse Oximetry 98 09/07/18 18:11 Oxygen Delivery Oxygen Delivery Room Air Chest Pain - Lab Data Result diagrams: 09/07/18 16:38 09/07/18 16:38 Lab Results 09/07/18 09/07/18 Range/Units 16:38 16:38 WBC 7.8 (4.3-11.1) K/mcL RBC 4.27 (3.82-4.97) M/mcL Hgb 13.2 (11.5-15.4) g/dL Hct 38.7 (35.3-44.9) % MCV 90.6 (83.0-100.0) fL MCH 30.9 (28.0-33.3) pg MCHC 34.1 (31.6-35.5) g/dL RDW 12.9 (11.5-14.5) % Plt Count 228 (140-400) K/mcL MPV 9.6 (9.4-12.4) fL Immature Gran % 0.5 (0-4) % Seg Neutrophils % 60.7 % Lymphocytes % 26.4 % Monocytes % 7.9 % Eosinophils % 3.7 % Basophils % 0.8 % Neutrophils # 4.7 (1.6-8.9) K/mcL Lymphocytes # 2.1 (0.6-4.6) K/mcL Monocytes # 0.6 (0.0-1.3) K/mcL Eosinophils # 0.3 (0.0-0.6) K/mcL Basophils # 0.1 (0.0-0.2) K/mcL Nucleated RBCs/100 WBC 0.4 H (0) /100 WBC Sodium 140 (136-145) mEq/L Potassium 4.4 (3.5-5.1) mEq/L Chloride 108 H (98-107) mEq/L Carbon Dioxide 21 L (23-29) mEq/L BUN 22 H (6-20) mg/dL Creatinine 0.85 (0.60-1.20) mg/dL Est GFR ( Amer) > 60 (> 60) Est GFR (Non-Af Amer) > 60 (> 60) BUN/Creatinine Ratio 26 (6-26) Glucose 94 (70-105) mg/dL Calculated Osmolality 293 (280-300) Calcium 9.5 (8.6-10.3) mg/dL Troponin I < 0.03 (< 0.04) ng/mL Attestation Statement - Attestation Attestation: DR Alejandre note: Please see the chart of Resident Dr Chetan Mccallum for complete documentation. I spent [id number] time with the patient and I agree with the patient's treatmen t and disposition. Chest pain while at home at rest. Reports prior coronary disease by history but denies prior catheterization. Has not had chest pain quite some time which she did have nitrates at home which she was offered pain after approximately 10 minutes. EKG and lab testing unremarkable this time. She was admitted pain-free
[2018-09-07 16:49] LABS: Basophils # 0.1 K/mcL (0.0-0.2); Basophils % 0.8 %; Eosinophils # 0.3 K/mcL (0.0-0.6); Eosinophils % 3.7 %; Hematocrit 38.7 % (35.3-44.9); Hemoglobin 13.2 g/dL (11.5-15.4); Immature Granulocytes % 0.5 % (0-4); Lymphocytes # 2.1 K/mcL (0.6-4.6); Lymphocytes % 26.4 %; Mean Corpuscular HGB Conc 34.1 g/dL (31.6-35.5); Mean Corpuscular Hemoglobin 30.9 pg (28.0-33.3); Mean Corpuscular Volume 90.6 fL (83.0-100.0); Mean Platelet Volume 9.6 fL (9.4-12.4); Monocytes # 0.6 K/mcL (0.0-1.3); Monocytes % 7.9 %; Neutrophils # 4.7 K/mcL (1.6-8.9); Nucleated Red Blood Cells 0.4 /100 WBC (0); Platelet Count 228 K/mcL (140-400); Red Blood Count 4.27 M/mcL (3.82-4.97); Red Cell Distribution Width 12.9 % (11.5-14.5); Segmented Neutrophils % 60.7 %
[2018-09-07 17:26] LABS: BUN/Creatinine Ratio 26 (6-26); Blood Urea Nitrogen 22 mg/dL (6-20); Calcium 9.5 mg/dL (8.6-10.3); Carbon Dioxide 21 mEq/L (23-29); Chloride 108 mEq/L (98-107); Glucose 94 mg/dL (70-105); Osmolality,Calculated 293 (280-300); Potassium 4.4 mEq/L (3.5-5.1); Sodium 140 mEq/L (136-145); Troponin I < 0.03 ng/mL (< 0.04); eGFR For Non-African Americans > 60 (> 60)
[2018-09-07] MEDS ORDERED: Naloxone 0.4 MG/ML INJ IVP PRN (17:48)
[2018-09-07] MEDS ORDERED: Nitroglycerin 0.4 MG TAB.SUBL SL PRN (17:50)
[2018-09-07] MEDS ORDERED: *HR* LORazepam 2 MG/ML VIAL IVP PRN (17:51)
--- NOTE | 2018-09-07 18:01 | Internal Med History&Physical ---
Date of Encounter: 09/07/18 Time of Encounter: 18:00 Internal Medicine - H&P: HPI Chief complaint: chest pain Admitted From: Home History of present illness: Ms. Hicks is a 57 year old female with history of mild CAD without stents, hyperlipidemia, anxiety disorder, morbid obesity, who presented to the ED sudden onset of chest discomfort. Substernal, pressure-like, occurred while she was mopping the floor, and was relieved when she received nitroglycerin and aspirin. No aggravating factors. Denies any nausea/vomiting, palpitation, diaphoresis, orthopnea, PND, or leg swelling. No fever/chills, cough, sputum production, abdominal pain, change in bowel habits, or dysuria. She was under a lot of stress recently and was having bouts of anxiety attacks for the last several days. Also states that she has not taken her aspirin for the last 4-5 months. In the ED, she was afebrile and hemodynamically stable. By the time she arrived to the ED, she was chest pain-free. CBC, BMP, and troponin were unremarkable. EKG shows normal sinus rhythm without STT changes concerning for ischemia. Chest x-ray did not show any acute cardiopulmonary process. Patient will be admitted for ACS rule out. Past Med Surg Social Fam HX - Past Medical History Attestation: Yes The following information was validated with the patient. Medical history: arthritis, hyperlipidemia, myocardial infarction, osteoporosis Additional medical history: spina bifida Psychiatric history: anxiety - Past Surgical History Surgical History: other Additional surgical history: knee sx - Social History Smoking Status: Current every day smoker Smokeless Tobacco Status: No Alcohol use: none Drug use: marijuana - Family History Mother Living Status: Hx Family Cardiac Disorders: Yes ([place]) Hx Family Respiratory Disorders: Yes (COPD, LUNG CANCER) Internal Medicine - H&P: Meds RX: Calcium Polycarbophil [Fiber Laxative] 625 mg PO HS 07/27/16 [History] RX: Cyclobenzaprine [Flexeril] 10 mg PO TID 07/27/16 [History] RX: Melatonin 10 mg PO HS 07/27/16 [History] RX: Mirtazapine [Remeron] 30 mg PO HS 07/27/16 [History] RX: Omeprazole [PriLOSEC] 40 mg PO HS 07/27/16 [History] RX: Sertraline [Zoloft] 75 mg PO HS 07/27/16 [History] RX: Atorvastatin [Lipitor] 80 mg PO HS #30 tablet 07/29/16 [Rx] RX: Clopidogrel [Plavix] 75 mg PO DAILY #30 tablet 07/29/16 [Rx] RX: LORazepam [Ativan] 0.5 mg PO QAM #30 tablet 07/29/16 [Rx] RX: LORazepam [Ativan] 1 mg PO HS #30 tablet 07/29/16 [Rx] RX: Metoprolol [Lopressor] 12.5 mg PO BID #30 tablet 07/29/16 [Rx] RX: Nicotine Patch [Nicoderm] 21 mg TD DAILY #30 patch.td24 07/29/16 [Rx] RX: OxyCODONE/APAP 5/325 [Percocet 5/325 MG] 2 each PO Q8H PRN #40 tablet 07/29/16 [Rx] RX: PredniSONE [Deltasone] 20 mg PO BID #10 tablet 03/15/17 [Rx] diazePAM [Valium] 5 mg PO BID PRN #10 tablet 03/15/17 [Rx] Allergy/AdvReac Type Severity Reaction Status Date / Time codeine Allergy Anaphylaxis Verified 09/13/16 08:42 hydrocodone [From Vicodin] Allergy Anaphylaxis Verified 09/13/16 08:42 All Systems PM: A 10-system review of systems was performed and is negative for pertinent findings except as documented above in the HPI. - Constitutional Vitals: Temp Pulse Resp BP Pulse Ox 98.3 F 69 16 111/73 97 09/07/18 15:57 09/07/18 15:57 09/07/18 15:57 09/07/18 15:57 09/07/18 16:19 Exam: General: Alert and oriented, not in acute distress. HEENT:EOMI, pupils equal, round and reactive. Cardiovascular:Normal S1 & S2, No JVD. Pulse regular. No lower extremity swelling Lungs: clear to auscultation, no wheezes/rales Abdomen:Soft, non-tender, no rigidity. Extremities:No deformity or swelling Neurological:Normal cognition and motor skills. Non-focal Skin:Normal color, no rash, no lesions. Pulses:Carotid and radial pulses normal +2. Rest of the physical exam is non contributory Internal Med - H&P Results - Labs CBC & Chem 7: 09/07/18 16:38 09/07/18 16:38 Labs: Short CBC 09/07/18 Range/Units 16:38 WBC 7.8 (4.3-11.1) K/mcL Hgb 13.2 (11.5-15.4) g/dL Hct 38.7 (35.3-44.9) % Plt Count 228 (140-400) K/mcL Neutrophils # 4.7 (1.6-8.9) K/mcL BMP 09/07/18 16:38 Sodium 140 Potassium 4.4 Chloride 108 H Carbon Dioxide 21 L BUN 22 H Creatinine 0.85 Glucose 94 Calcium 9.5 Cardiac Enzymes 09/07/18 Range/Units 16:38 Troponin I < 0.03 (< 0.04) ng/mL - Impressions ITS Impressions Chest X-Ray 09/07/18 16:09 IMPRESSION: No acute cardiopulmonary abnormality. D/ / Iban Anderson MD / Iban Anderson MD Interpreting Provider: Iban Anderson MD - Assessment and Plan (1) Chest pain Current Visit: Yes Status: Acute Assessment and plan: atypical chest pain, appears to be related to anxiety currently pain free continue ASA, statin trend troponin [facility] 07/26 showed 20% stenosis in the proximal circumflex but otherwise angiograp hically free of disease highly doubtful that her disease has significantly progressed since then but will keep her NPO in case stress test will be ordered Qualifiers: Chest pain type: unspecified Qualified Code(s): R07.9 - Chest pain, unspecified (2) Anxiety Current Visit: No Status: Chronic Assessment and plan: When necessary Ativan while waiting for home meds to be reconciled (3) Morbid obesity Current Visit: No Status: Chronic Assessment and plan: Lifestyle modifications emphasized (4) Tobacco abuse Current Visit: No Status: Chronic Assessment and plan: smoking cessation encouraged NRT (5) DVT prophylaxis Current Visit: Yes Status: Acute Assessment and plan: EPCD - Time Spent With Patient Total time spent is greater than 50% in coordination of care (as documented) at patient's floor/unit and/or counseling patient: 25 - 35 minutes
[2018-09-07] MEDS ORDERED: Aspirin 81 MG TAB.CHEW ONE (18:14)
[2018-09-07] MEDS ORDERED: *HR* Ticagrelor 90 MG TABLET ONE (18:14)
[2018-09-07] MEDS ORDERED: 0.9 % Sodium Chloride 1,000 ML ONE (18:14)
[2018-09-07] MEDS ORDERED: *HR* Heparin 5,000 UNIT/ML VIAL ONE (18:14)
[2018-09-07] MEDS ORDERED: *HR* OxyCODONE/APAP 5/325 TABLET PO ONE (19:02)
[2018-09-07] MEDS: Nicotine 21 MG PATCH.TD24 TD SCH (20:23)
[2018-09-08 05:33] LABS: Hematocrit 39.8 % (35.3-44.9); Mean Corpuscular HGB Conc 32.7 g/dL (31.6-35.5); Mean Corpuscular Hemoglobin 30.2 pg (28.0-33.3); Mean Corpuscular Volume 92.6 fL (83.0-100.0); Mean Platelet Volume 9.6 fL (9.4-12.4); Platelet Count 235 K/mcL (140-400); Red Cell Distribution Width 13.1 % (11.5-14.5)
[2018-09-08] MEDS ORDERED: traMADol 50 MG TABLET PO ONE (05:43)
[2018-09-08 05:55] LABS: BUN/Creatinine Ratio 26 (6-26); Blood Urea Nitrogen 22 mg/dL (6-20); Carbon Dioxide 25 mEq/L (23-29); Chloride 107 mEq/L (98-107); Chol/HDL Ratio 6.2 (0-4.9); Cholesterol 197 mg/dL (< 200); Glucose 90 mg/dL (70-105); HDL Cholesterol 32 mg/dL (40-59); LDL Cholesterol,Calculated 95 mg/dL (0-99); Magnesium 2.1 mg/dL (1.6-2.6); Osmolality,Calculated 289 (280-300); Potassium 3.6 mEq/L (3.5-5.1); Sodium 138 mEq/L (136-145); Triglycerides 350 mg/dL (< 150); eGFR For Non-African Americans > 60 (> 60)
[2018-09-08] MEDS ORDERED: Aspirin Enteric Coated 81 MG Tablet PO SCH (09:00)
[2018-09-08] MEDS: Nicotine 21 MG PATCH.TD24 TD SCH (09:34)
[2018-09-08 12:06] VITALS: BP 130/80
--- NOTE | 2018-09-08 17:58 | Discharge Summary ---
Orders not resulted at time of discharge: Pending orders 09/07/18 16:09 ECG 12 lead ECG [ECG] Stat 09/08/18 05:02 Hgb A1C AM 0400 Date of Encounter: 09/08/18 Time of Encounter: 17:57 - Discharge Diagnosis (1) Chest pain Priority: Primary Status: Acute Qualifiers: Chest pain type: unspecified Qualified Code(s): R07.9 - Chest pain, unspecified (2) GERD (gastroesophageal reflux disease) Priority: Secondary Status: Chronic Qualifiers: Esophagitis presence: esophagitis presence not specified Qualified Code(s): K21.9 - Gastro-esophageal reflux disease without esophagitis (3) Fibromyalgia Priority: Secondary Status: Chronic (4) Chronic pain syndrome Priority: Secondary Status: Chronic (5) Morbid obesity Priority: Secondary Status: Chronic Hospital course: HOSPITAL COURSE: The patient is a 57 year old woman. We admitted her to the hospital with atypical chest pain. She was under a lot of stress in the last several days preceding this admission; associated with anxiety attacks. She has underlying fibromyalgia and depression with anxiety. Physical exam was basically normal. EKG and troponin were normal, too. The patient had cardiac catheterization in July 2016. It showed mild coronary artery disease with normal ejection fraction. Her chest pain subsided shortly after the admission. He did not show later into this hospitalization. CONDITION AT DISCHARGE: Feels good. Denies chest pain and difficulty breathing. Denies coughing and wheezing. She can ambulate on her own without difficulties. Skin: Free of rash and discoloration. Respiratory: Normal breath sounds with no crackles and wheezes bilaterally. CV: Heart is regular with no gallop or murmur. GI: Abdomen is flat and soft with no palpable mass or visceromegaly. Neuro exam: There is no focal deficits. Normal speech, swallowing and gait. SEE DISCHARGE ORDERS/MEDICATIONS Discharge discussed with: patient Time spent discussing smoking cessation with patient: 3 to 10 minutes - Time Spent with Patient Total time spent providing and/or coordinating discharge services: Time spent: Greater than 30 minutes (40 minutes...) - Discharge Medications Prescriptions: New Nitroglycerin 0.4 mg SL Q5MIN PRN #25 tab.subl PRN Reason: Chest Pain Aspirin Enteric Coated [Aspirin EC] 81 mg PO DAILY tablet. Lisinopril 2.5 mg PO DAILY #30 tablet Metoprolol Succinate [Toprol Xl] 25 mg PO QAM #30 tab.er.24h Omeprazole [PriLOSEC] 20 mg PO QAM #30 cap Continue Sertraline [Zoloft] 75 mg PO HS Omeprazole [PriLOSEC] 40 mg PO DAILY Calcium Polycarbophil [Fiber Laxative] 625 mg PO DAILY Cyclobenzaprine [Flexeril] 10 mg PO QID Mirtazapine 45 mg PO HS OxyCODONE Immed Rel [Roxicodone 5 MG] 10 mg PO BID PRN PRN Reason: Pain OxyCODONE Immed Rel [Roxicodone 5 MG] 10 mg PO PRN PRN PRN Reason: Pain Changed ALPRAZolam [Xanax 1 MG Tablet] 1 mg PO Q6H PRN #0 PRN Reason: Anxiety Discontinued Metoprolol [Lopressor] 12.5 mg PO BID #30 tablet Naproxen Sodium [Aleve] 220 mg PO DAILY PRN PRN Reason: Pain Home Medications: Omeprazole [PriLOSEC] 40 mg PO DAILY 07/27/16 [History] Sertraline [Zoloft] 75 mg PO HS 07/27/16 [History] ALPRAZolam [Xanax 1 MG Tablet] 1 mg PO Q6H PRN #0 09/08/18 [Rx] Aspirin Enteric Coated [Aspirin EC] 81 mg PO DAILY tablet. 09/08/18 [Rx] Calcium Polycarbophil [Fiber Laxative] 625 mg PO DAILY 09/08/18 [History] Cyclobenzaprine [Flexeril] 10 mg PO QID 09/08/18 [History] Lisinopril 2.5 mg PO DAILY #30 tablet 09/08/18 [Rx] Metoprolol Succinate [Toprol Xl] 25 mg PO QAM #30 tab.er.24h 09/08/18 [Rx] Mirtazapine 45 mg PO HS 09/08/18 [History] Nitroglycerin 0.4 mg SL Q5MIN PRN #25 tab.subl 09/08/18 [Rx] Omeprazole [PriLOSEC] 20 mg PO QAM #30 cap 09/08/18 [Rx] OxyCODONE Immed Rel [Roxicodone 5 MG] 10 mg PO BID PRN 09/08/18 [History] OxyCODONE Immed Rel [Roxicodone 5 MG] 10 mg PO PRN PRN 09/08/18 [History] Allergies/Adverse Reactions: Allergy/AdvReac Type Severity Reaction Status Date / Time codeine Allergy See Verified 09/08/18 11:36 Comments hydrocodone [From Vicodin] Allergy kidney Verified 09/08/18 11:36 failure acetaminophen [From Tylenol] AdvReac Nausea/ Verified 09/08/18 11:36 VOMITING Date of admission: 09/07/18 17:54 Primary care physician: Duran Scott Jr, MD Discharging clinician: Zaid Omer Anticipated date of discharge: 09/08/18 - Constitutional Vitals: Temp Pulse Resp BP Pulse Ox 98.1 F 67 16 130/80 96 09/08/18 12:02 09/08/18 12:02 09/08/18 12:02 09/08/18 12:02 09/08/18 12:02 General appearance: Present: A&O X 3, no acute distress, answers questions appropriately Exam: xx - Patient Status Disposition: Home, Self-Care Condition: Fair Functional capacity at discharge: independent ambulation Overall status at discharge: patient is back to baseline - Discharge Instructions Instructions: Chest Pain (DC), Chest Pain (GEN) Follow Up With: Duran Scott Jr, MD [Primary Care Provider] - (Please make follow up appointment in 7-10 days with PCP.) - Diet and Activity Activity: resume usual activities as tolerated Diet: low salt diet (fluid restriction of 1800 ml per day...) - VTE Reasons for not Prescribing Prophylaxis: Treatment not Indicated - Low risk for VTE Deep Vein Thrombosis/Pulmonary Embolism Present on Admission: No
[2018-09-09 07:05] LABS: Estimated Average Glucose 117 mg/dl; Hemoglobin A1C 5.7 %
--- NOTE | 2018-09-11 16:37 | Electrocardiograph Report ---
[place] [id number] Test Date: 2018-09-07 Pat Name: Marci Hicks Department: EXAM3 Room: 3B64 Gender: F Data Collection Interviewer: : 1960 Requested By: Chetan Mccallum Order Number: [id number] Reading MD: Brenna Ruff Measurements Intervals Center Rate: 70 P: 22 LA: 196 QRS: 7 QRSD: 108 T: 33 QT: 399 QTc: 431 Interpretive Statements Sinus rhythm Low voltage, precordial leads Incomplete right bundle branch block Electronically Signed On 09-11-2018 16:35:23 EST by Brenna Ruff
== END 2018-09-08 18:53 | disposition home or self-care (01) ==
LOC: 3BNU 15:53 → EMEROOARM 15:53 → SUATTDRO 17:54 → 3BNU 18:30
PROVIDERS: ADMIT Internal Medicine; ATTEND Internal Medicine